=== PATIENT | female | born 1930 | race Caucasian/White ===

== ENCOUNTER → 2022-05-10 14:03 | Observation (INO) ==
[2022-05-09] MEDS: NS 1,000 ML IV 1,000 ML IV SCH ×4 (00:50→13:36)
[2022-05-09 01:26] LABS: BASOPHILS # (AUTO) 0.1 X10^3/uL (0.0-0.1); EOSINOPHILS # (AUTO) 0.1 x10^3/uL (0.0-0.2); EOSINOPHILS % (AUTO) 1.1 % (0.9-2.9); HEMATOCRIT 37.7 % (36.0-47.0); HEMOGLOBIN 12.6 g/dL (12.0-16.0); LYMPHOCYTES # (AUTO) 1.6 X10^3/uL (1.3-2.9); LYMPHOCYTES % (AUTO) 13.7 % (21.0-51.0); MEAN CORPUSCULAR HEMOGLOBIN 30.4 pg (27.0-34.0); MEAN CORPUSCULAR HGB CONC 33.6 g/dL (33.0-35.0); MEAN CORPUSCULAR VOLUME 90.6 fL (80.0-100.0); MEAN PLATELET VOLUME 7.7 fL (7.4-11.0); MONOCYTES # (AUTO) 0.6 x10^3/uL (0.3-0.8); MONOCYTES % (AUTO) 5.1 % (0.0-13.0); NEUTROPHILS # (AUTO) 8.9 x10^3/uL (2.2-4.8); NEUTROPHILS % (AUTO) 79.1 % (42.0-75.0); RED BLOOD COUNT 4.15 X10^6/uL (3.5-5.4); RED CELL DISTRIBUTION WIDTH 13.9 % (11.6-16.5); WHITE BLOOD COUNT 11.3 X10^3/uL (3.6-10.0)
[2022-05-09 01:35] LABS: ALANINE AMINOTRANSFERASE 20 Units/L (12-78); ALBUMIN 3.6 g/dL (3.4-5.0); ALKALINE PHOSPHATASE 66 Units/L (46-116); ASPARTATE AMINO TRANSFERASE 21 Units/L (15-37); BLOOD UREA NITROGEN 21 mg/dL (7-18); CARBON DIOXIDE 31.3 mmol/L (21-32); CHLORIDE 104 mmol/L (98-107); COR NA(FOR HYPERGLY) 142 mmol/L (136-145); SODIUM 141 mmol/L (136-145); TOTAL PROTEIN 6.7 g/dL (6.4-8.2); eGFR NON BLACK RACES 45 (>60)
[2022-05-09 02:52] VITALS: BMI 21.1
[2022-05-09 06:58] LABS: HEMATOCRIT 33.1 % (36.0-47.0); HEMOGLOBIN 11.2 g/dL (12.0-16.0)
[2022-05-09] MEDS: PULMICORT NEB TX 0.5 MG NEB SCH ×2 (08:44→20:05)
[2022-05-09] MEDS: ANUCORT-HC SUPP PR SCH ×2 (10:20→20:53)
[2022-05-09] MEDS: PROTONIX TAB 40 MG PO SCH (13:37)
[2022-05-09] MEDS: ZOLOFT PO SCH ×3 (13:37→20:55)
[2022-05-09] MEDS: CLARITIN PO SCH (13:39)
[2022-05-09] MEDS: COREG TAB 3.125 MG PO SCH ×2 (13:39→20:55)
[2022-05-09] MEDS: XANAX PO PRN (13:39)
--- NOTE | 2022-05-09 16:23 | CT ---
HISTORYRECTAL BLEEDINGSTUDYABDOMEN/PELVIS WITH CONCOMPARISONTECHNIQUEMultiple axial images of the abdomen and pelvis were obtained from the lung bases to the pubic symphysis after the administration of IV contrast. Dose reduction techniques including Automated Exposure Control (AEC) and adjustment of mA and kV were utilized.FINDINGSThere are some small basilar nodules measuring up to 4 mm which are probably postinflammatory. There is also some bibasilar stranding which could be scarring or atelectasis. There is some emphysema in the lung bases as well. There is no pleural effusion or pneumothorax. Heart size is normal. There is atherosclerosis in the LAD, 1st diagonal, and RCA. There is a small pericardial effusion. The liver is normal. The gallbladder has been removed. Pancreas is grossly normal. Spleen is atrophic and there is probably been a prior splenic injury. There is a left adrenal lesion measuring up to 3.1 cm in diameter which contains calcification and some low-density. This is compatible with a benign lesion. The kidneys enhance normally and there is no mass, stone, or hydronephrosis. The stomach is grossly normal as are the small bowel loops. The appendix is not identified but there is no evidence for appendicitis. There is diverticulosis throughout the colon but no convincing diverticulitis. Urinary bladder is normal. The uterus has been removed. There is moderate systemic atherosclerosis. There is grade 2 anterolisthesis of L5 on S1 which is chronic. There is no acute or worrisome bone marrow lesion.IMPRESSION1. A definite source of the rectal bleeding is not defined. There is diffuse diverticulosis coli which is a likely source. 2. Benign-appearing left adrenal lesion.Electronically signed by: Daniele Corey (May 09, 2022 16:23:17)
[2022-05-09 16:26] LABS: HEMATOCRIT 30.1 % (36.0-47.0); HEMOGLOBIN 10.1 g/dL (12.0-16.0)
[2022-05-10] MEDS: NS 1,000 ML IV 1,000 ML IV SCH ×2 (01:00→02:00)
[2022-05-10 05:04] LABS: HEMOGLOBIN 9.1 g/dL (12.0-16.0)
[2022-05-10] MEDS: XANAX PO PRN (06:05)
[2022-05-10] MEDS: PULMICORT NEB TX 0.5 MG NEB SCH (08:31)
[2022-05-10 08:33] LABS: BASOPHILS # (AUTO) 0.2 X10^3/uL (0.0-0.1); BASOPHILS % (AUTO) 2.1 % (0.2-1.0); EOSINOPHILS # (AUTO) 0.3 x10^3/uL (0.0-0.2); EOSINOPHILS % (AUTO) 3.4 % (0.9-2.9); HEMATOCRIT 29.8 % (36.0-47.0); LYMPHOCYTES # (AUTO) 2.4 X10^3/uL (1.3-2.9); MEAN CORPUSCULAR HEMOGLOBIN 30.4 pg (27.0-34.0); MEAN CORPUSCULAR HGB CONC 33.5 g/dL (33.0-35.0); MEAN CORPUSCULAR VOLUME 90.9 fL (80.0-100.0); MEAN PLATELET VOLUME 7.6 fL (7.4-11.0); MONOCYTES # (AUTO) 0.6 x10^3/uL (0.3-0.8); MONOCYTES % (AUTO) 8.5 % (0.0-13.0); RED BLOOD COUNT 3.28 X10^6/uL (3.5-5.4); RED CELL DISTRIBUTION WIDTH 14.2 % (11.6-16.5); WHITE BLOOD COUNT 7.4 X10^3/uL (3.6-10.0)
[2022-05-10] MEDS: PROTONIX TAB 40 MG PO SCH (08:42)
[2022-05-10] MEDS: COREG TAB 3.125 MG PO SCH (08:42)
[2022-05-10] MEDS: CLARITIN PO SCH (08:43)
[2022-05-10] MEDS: ANUCORT-HC SUPP PR SCH (08:45)
[2022-05-10] MEDS: ZOLOFT PO SCH (08:45)
[2022-05-10 08:53] LABS: ALANINE AMINOTRANSFERASE 18 Units/L (12-78); ALKALINE PHOSPHATASE 52 Units/L (46-116); ASPARTATE AMINO TRANSFERASE 20 Units/L (15-37); BLOOD UREA NITROGEN 14 mg/dL (7-18); CALCIUM 8.2 mg/dL (8.5-10.1); CHLORIDE 109 mmol/L (98-107); COR NA(FOR HYPERGLY) 141 mmol/L (136-145); CREATININE 0.97 mg/dL (0.55-1.02); SODIUM 141 mmol/L (136-145); TOTAL PROTEIN 5.7 g/dL (6.4-8.2); eGFR NON BLACK RACES 57 (>60)
[2022-05-10 12:05] VITALS: BP 121/69
[~2022-05-10 14:03] MED LIST: NS 100 ML IV 100 ML with VENOFER 400 MG IV NR; PATIENT'S HOME MEDICATION (Budesonide-Formoterol 160-4.5 mcg/actuation HFA aerosol inhaler IN SCH; PROVENTIL NEB TX 0.083% 2.5MG/ 3ML NEB PRN; SINGULAIR TAB 10 MG PO SCH; TAB-A-VITE PO SCH; UMECLIDINIUM INH SCH; [UNRECOGNIZED DRUG - OTHER] INH SCH
== END ==
LOC: MED/SURG
PROVIDERS: ADMIT Obstetrics & Gynecology Obstetrics; ATTEND Obstetrics & Gynecology Obstetrics